=== PATIENT | male | born 1945 | race Caucasian/White ===

== ENCOUNTER 2016-12-12 11:53 | Day surgery (SDC) | payer BC, MEDICARE ==
[2016-12-12 13:15] VITALS: RESP 14; TEMP 97.5
[2016-12-12 13:37] VITALS: BP 145/83; PULSE 72
--- NOTE | 2016-12-12 13:58 | US ---
EXAMINATION TYPE: US FNA thyroid DATE OF EXAM: 12/12/2016 COMPARISON: NONE HISTORY: Thyroid nodule on the right. Maximal barrier technique was utilized. After informed consent, skin overlying the right lobe thyroi d lesion was localized with ultrasound and the overlying skin prepped and draped. Ultrasound was util ized using sterile technique. Lidocaine was used for local anesthesia. Five passes with a 25-gauge n eedle were made into the nodule and aspirated specimen was submitted to cytology. Following the proc edure hemostasis achieved. No immediate complication. The patient discharged in stable condition. IMPRESSION: STATUS POST ULTRASOUND GUIDED FINE NEEDLE ASPIRATION OF THYROID NODULE, PATHOLOGY IS PEND ING. THIS PROCEDURE WAS PERFORMED BY THE UNDERSIGNED.
== END 2016-12-12 13:44 | disposition home or self-care (01) ==
LOC: RADPROMAIN 11:53
PROVIDERS: ATTEND Otolaryngology
DX: E04.1 Nontoxic single thyroid nodule (principal)
CPT/HCPCS: 10022; 76942; 88173; 88305

== ENCOUNTER → 2016-12-22 | Outpatient (CLI) | payer MEDICARE ==
[2016-12-22 07:57] LABS: Ionized Calcium 5.1 mg/dL (4.5-5.3)
[2016-12-22 08:08] LABS: ALT 42 U/L (21-72); AST 19 U/L (17-59); Alkaline Phosphatase 47 U/L (38-126); Anion Gap 10 mmol/L; Blood Urea Nitrogen 25 mg/dL (9-20); Calcium 9.5 mg/dL (8.4-10.2); Carbon Dioxide 25 mmol/L (22-30); Chloride 108 mmol/L (98-107); Glucose 131 mg/dL (74-99); Non-African American GFR(MDRD) >60 (>60 ml/min/1.73 sqM); Potassium 4.4 mmol/L (3.5-5.1); Sodium 143 mmol/L (137-145); Total Protein 6.6 g/dL (6.3-8.2)
== END | disposition home or self-care (01) ==
LOC: LABWHC1 07:19
PROVIDERS: ATTEND Otolaryngology
DX: E04.1 Nontoxic single thyroid nodule (principal)
CPT/HCPCS: 36415; 80053; 82330; 84443

== ENCOUNTER 2017-01-14 07:59 | Day surgery (SDC) | payer MEDICARE ==
[2017-01-09 11:57] VITALS: BMI 29.9
[~2017-01-14 07:59] MED LIST: DEXAMETHASONE SOD PHOSPHATE 10 MG/ML 1 ML VIAL IV ONE; DEXAMETHASONE SOD PHOSPHATE 4 MG/ML 1 ML VIAL IV ONE; FAMOTIDINE 20 MG/2 ML VIAL IV ONE; LACTATED RINGERS 1,000 ML IV SCH; LIDOCAINE 1% 20 ML VIAL (10MG/ML) FOR IV START INTRADERMA PRN; MIDAZOLAM 2 MG/2 ML VIAL IV PRN; ONDANSETRON 4 MG/2 ML VIAL IVP ONE; SCOPOLAMINE 1.5MG/72HR PATCH TRANSDERM ONE; ceFAZolin 1,000 MG in DEXTROSE/WATER 1 50ML.BAG IV ONE
[2017-01-14] MEDS: ONDANSETRON 4 MG/2 ML VIAL IVP ONE ×2 (09:03→13:29)
[2017-01-14 09:04] LABS: Glucose,Whole Blood 169 mg/dL (75-99)
[2017-01-14] MEDS ORDERED: SUCCINYLCHOLINE CHLORIDE 100 MG/5 ML SYR IV ONE (09:44)
[2017-01-14] MEDS ORDERED: PHENYLEPHRINE-0.9% NACL SYG 1 MG/10 ML SYRINGE ONE (09:44)
[2017-01-14] MEDS ORDERED: fentaNYL (PF) 50 MCG/ML 2 ML AMP ONE (09:44)
[2017-01-14] MEDS ORDERED: GLYCOPYRROLATE 0.2 MG/ML 2 ML VIAL ONE (09:44)
[2017-01-14] MEDS ORDERED: MIDAZOLAM 2 MG/2 ML VIAL ONE (09:44)
[2017-01-14] MEDS ORDERED: LIDOCAINE 1% INJ 10MG/ML (20 ML MDV) ONE (09:44)
[2017-01-14] MEDS ORDERED: DEXAMETHASONE SOD PHOS (MDV) 100 MG/10 ML VIAL ONE (09:44)
[2017-01-14] MEDS ORDERED: PROPOFOL 10 MG/ML 20 ML VIAL IV ONE (09:44)
[2017-01-14] MEDS ORDERED: LACTATED RINGERS 1,000 ML IV ONE ×3 (11:23→14:42)
[2017-01-14] MEDS: LACTATED RINGERS 1,000 ML IV ONE ×2 (11:23→14:32)
--- NOTE | 2017-01-14 13:06 | P.OP ---
Date of Procedure: 01/14/17 Preoperative Diagnosis: Right thyroid nodule/mass Postoperative Diagnosis: Same Procedure(s) Performed: Right thyroid lobectomy with isthmusectomy Anesthesia: TAMMIA Surgeon: Adriel Mckee Estimated Blood Loss (ml): 10 Pathology: other (Right thyroid lobe and isthmus) Condition: stable Disposition: PACU Indications for Procedure: This is a 71-year-old white male with a right thyroid mass noted by his primary care physician. 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 Operative Findings: Nodular firm right thyroid lobe with a large well encapsulated nodule off the superior pole approximately 5 cm Description of Procedure: Patient was brought in the operative suite and placed in supine position. The patient underwent induction of general anesthesia with oral endotracheal intubation without difficulty. The patient was prepped and draped using aseptic fashion. Patient was intubated with a nim endotracheal tube for monitoring the recurrent laryngeal nerve. This was tested and was working well. A curvilinear incision was made low anterior neck 2 fingerbreadths above the clavicles between the sternocleidomastoid muscles was carried sharply through the skin and subcu tissue as well as platysma layer. The skin flaps were raised the subplatysmal plane. The trachea was deviated quite significantly towards the left and therefore the this was located to the left the midline. The strap muscles were split in the midline raphae. The thyroid isthmus was located and was divided with electrocautery at the junction of the left thyroid lobe and isthmus and was reflected off the trachea towards the right. Dissection then continued inferiorly to locate the inferior pole and the inferior parathyroid gland was identified and preserved. The inferior thyroid artery and vein were doubly clamped divided and ligated with 3-0 Vicryl ties. The recurrent laryngeal nerve located also in the tracheoesophageal groove. The dissection then continued superiorly and this was where the nodule was located and was quite extensive. This was dissected bluntly and sharply from the surrounding tissue. The superior thyroid artery and vein were doubly clamped divided and ligated individually after the superior laryngeal nerve was identified and preserved. Dissection then continued laterally to dissecting from lateral to medial. This was performed with the recurrent laryngeal nerve in good visualization. Ultimately the nodule and thyroid lobe were reflected off of the anterior trachea. Gen. nerve was recurrent laryngeal nerve was identified once again and traced throughout its tract was noted to be intact. This stimulated well with 0.5 mA at the conclusion of the case and hemostasis was noted to be good. A small pledget of Surgicel was placed over this is. A #7 drain was placed through separate inferior stab incision. The wound again was noted. Good hemostasis. The platysma and subcu layers was closed with inverted interrupted 30 and 4-0 Vicryl respectively and the skin closed running locking 5-0 Prolene suture. Sterile dressing was placed. The drain dressing also placed. The patient was then allowed to emerge from general anesthesia and tolerated procedure well was extended the operating suite and transferred postoperative recovery area in satisfactory condition.
[2017-01-14] MEDS: HYDROmorphone 0.5 MG/0.5 ML SYRINGE IVP PRN ×2 (13:20→13:28)
[2017-01-14 13:21] VITALS: TEMP 97
[2017-01-14 14:16] LABS: Glucose,Whole Blood 263 mg/dL (75-99)
[2017-01-14] MEDS ORDERED: INSULIN LISPRO (humaLOG) 300 UNIT/3 ML VIAL SQ ONE ×2 (14:21→15:10)
[2017-01-14 15:09] LABS: Glucose,Whole Blood 285 mg/dL (75-99)
[2017-01-14 16:34] VITALS: RESP 20
[2017-01-14 16:49] VITALS: BP 132/67; PULSE 93
== END 2017-01-14 17:15 | disposition home or self-care (01) ==
LOC: OR 07:59
PROVIDERS: ATTEND Otolaryngology
DX: C73 Malignant neoplasm of thyroid gland (principal); E04.2 Nontoxic multinodular goiter; I10 Essential (primary) hypertension; E78.5 Hyperlipidemia, unspecified; E11.9 Type 2 diabetes mellitus without complications; E07.9 Disorder of thyroid, unspecified; N40.0 Benign prostatic hyperplasia without lower urinary tract symptoms; Z79.84 Long term (current) use of oral hypoglycemic drugs; Z79.82 Long term (current) use of aspirin; Z79.899 Other long term (current) drug therapy; Z88.7 Allergy status to serum and vaccine
CPT/HCPCS: 60220; 82310; 88307; 88311; J2250; J1100 ×2; J2405; J2001; J3010; J0690; J2370; J0330; J2704; J1170

== ENCOUNTER → 2017-08-10 | Outpatient (CLI) | payer MEDICARE ==
[2017-08-10 09:18] LABS: T4, Free (Free Thyroxine) 1.14 ng/dL (0.78-2.19)
--- NOTE | 2017-08-10 10:24 | US ---
EXAMINATION TYPE: US thyroid st tissue head/neck DATE OF EXAM: 08/10/2017 COMPARISON: 12/12/2016 fine-needle aspiration. No prior imaging of the left thyroid lobe. CLINICAL HISTORY: C73 Malignant neoplasm of thyroid gland. GLAND SIZE: Right Lobe: Surgically absent Left Lobe: 4.7 x 2.6 x 1.4 cm Overall Parenchyma: homogeneous Isthmus Thickness: 0.5 cm NODULES RIGHT: Surgically absent. No residual tissue visualized. LEFT: # of nodules measured on left: 0 0.6 x 0.5 x 0.6cm hypoechoic solid nodule with well defined borders, wider than tall with no vascular ity. Other smaller similar appearing nodules are seen within the left thyroid lobe. Bilateral neck scanned, no evidence of lymphadenopathy. IMPRESSION: Solitary subcentimeter solid hypoechoic left thyroid nodule for which surveillance is recommended as this is too small for fine-needle aspiration. Other smaller scattered nodules are also seen within th e left thyroid lobe. No adenopathy visualized.
== END | disposition home or self-care (01) ==
LOC: LABWHC1 08:20
PROVIDERS: ATTEND Internal Medicine Endocrinology, Diabetes & Metabolism
DX: C73 Malignant neoplasm of thyroid gland (principal)
CPT/HCPCS: 36415; 76536; 84432; 84439; 84443; 86800

== ENCOUNTER → 2017-10-08 | Outpatient (CLI) | payer MEDICARE ==
[2017-10-08 12:49] LABS: Basophils % (A) 0 %; Eosinophils % (A) 0 %; HCT 43.2 % (39.0-53.0); HGB 14.4 gm/dL (13.0-17.5); Lymphocytes # (A) 1.4 k/uL (1.0-4.8); Lymphocytes % (A) 31 %; MCH 30.3 pg (25.0-35.0); MCHC 33.4 g/dL (31.0-37.0); MCV 90.6 fL (80.0-100.0); Mean Platelet Volume 7.3; Monocytes # (A) 0.4 k/uL (0-1.0); Monocytes % (A) 9 %; Neutrophils # (A) 2.5 k/uL (1.3-7.7); Neutrophils % (A) 57 %; Platelet Count 219 k/uL (150-450); RBC 4.77 m/uL (4.30-5.90); RDW 14.4 % (11.5-15.5); WBC 4.5 k/uL (3.8-10.6)
[2017-10-08 12:58] LABS: Anion Gap 10 mmol/L; Blood Urea Nitrogen 27 mg/dL (9-20); C Reactive Protein <5.0 mg/L (<10.0); Calcium 9.2 mg/dL (8.4-10.2); Carbon Dioxide 23 mmol/L (22-30); Chloride 105 mmol/L (98-107); Glucose 230 mg/dL (74-99); Potassium 5.1 mmol/L (3.5-5.1); Sodium 138 mmol/L (137-145)
[2017-10-08 14:03] LABS: Erythrocyte Sedimentation Rate 5 mm/hr (0-15)
== END | disposition home or self-care (01) ==
LOC: LABWHC1 11:24
PROVIDERS: ATTEND Internal Medicine Infectious Disease
DX: E11.69 Type 2 diabetes mellitus with other specified complication (principal); L08.89 Other specified local infections of the skin and subcutaneous tissue
CPT/HCPCS: 36415; 80048; 85025; 85652; 86140

== ENCOUNTER → 2017-11-12 | Outpatient (CLI) | payer MEDICARE ==
--- NOTE | 2017-11-12 14:24 | XR ---
Right foot HISTORY: Right foot pain, diabetic ulcer, nonhealing wound 3 views of the right foot No comparisons There is soft tissue swelling at the second digit of the right foot. Erosion is present at the distal aspect of the middle phalanx of the second digit of the right foot at its medial extent with overhan ging bony edge. Some lateral subluxation is present at the distal interphalangeal joint. Punched-out lucency also noted the middle phalanx of the fourth digit of the right foot. Degenerative change present at the first metatarsophalangeal joint. Vascular calcifications are prese nt in the soft tissues. There is a plantar calcaneal spur, enthesophyte present at the insertion of t he Achilles tendon. Ossific density at the talar neck is well-corticated and not likely to be acute. There is soft tissue swelling. IMPRESSION: Findings suggest osteomyelitis second digit right foot. Additional findings above.
== END | disposition home or self-care (01) ==
LOC: RADXRMAIN 11:48
PROVIDERS: ATTEND Internal Medicine Infectious Disease
DX: S93.134A Subluxation of interphalangeal joint of right lesser toe(s), initial encounter (principal)

== ENCOUNTER → 2017-11-25 | Outpatient (CLI) | payer MEDICARE ==
--- NOTE | 2017-11-25 10:08 | XR ---
EXAMINATION TYPE: XR foot complete RT DATE OF EXAM: 11/25/2017 COMPARISON: NONE HISTORY: Pain TECHNIQUE: Three views are submitted. FINDINGS: The osseous structures are intact. There is no acute fracture or dislocation. Severe arthropathy f irst MTP joint. There is subluxation of the distal phalanx of the second digit relative to the middle phalanx and there is a area of erosive change involving the second digit suspicious for osteomyeliti s. Arthropathy of the DIP joints of the fourth and fifth digits noted. Vascular calcifications are no sabas. Calcaneal spurs are noted. IMPRESSION: 1. Erosive change middle phalanx second digit compatible with osteomyelitis. There also subluxation o r dislocation of the distal phalanx second digit.
== END | disposition home or self-care (01) ==
LOC: RADXRMAIN 08:33
PROVIDERS: ATTEND Internal Medicine Infectious Disease
DX: M86.8X7 Other osteomyelitis, ankle and foot (principal)

== ENCOUNTER → 2018-10-13 | Outpatient (CLI) | payer MEDICARE ==
--- NOTE | 2018-10-13 13:33 | XR ---
EXAMINATION TYPE: XR foot complete RT DATE OF EXAM: 10/13/2018 COMPARISON: 11/25/2017 HISTORY: Second toe pain TECHNIQUE: Three views are submitted. FINDINGS: There appears to be loss of cortical margin along the distal phalanx of the DIP joint second digit. S evere arthropathy first MTP joint. There is arthropathy of all DIP joints. Vascular calcifications ar e noted. Large calcaneal spurs are seen. There is no acute fracture or dislocation. IMPRESSION: 1. There is irregularity of the DIP joint of the second digit suspicious for osteomyelitis. Correlate clinically.
== END | disposition home or self-care (01) ==
LOC: RADXRMAIN 13:04
PROVIDERS: ATTEND Family Medicine
DX: M25.871 Other specified joint disorders, right ankle and foot (principal)

== ENCOUNTER 2022-04-01 07:36 | Day surgery (SDC) | payer MEDICARE ==
[~2022-04-01 07:36] MED LIST changes: +ALPRAZolam 0.25 MG TAB PO PRN; +ALPRAZolam 0.5 MG TAB PO PRN; +ASPIRIN 325 MG TAB PO STA; -DEXAMETHASONE SOD PHOSPHATE 10 MG/ML 1 ML VIAL IV ONE; -DEXAMETHASONE SOD PHOSPHATE 4 MG/ML 1 ML VIAL IV ONE; -FAMOTIDINE 20 MG/2 ML VIAL IV ONE; -LACTATED RINGERS 1,000 ML IV SCH; -LIDOCAINE 1% 20 ML VIAL (10MG/ML) FOR IV START INTRADERMA PRN; -MIDAZOLAM 2 MG/2 ML VIAL IV PRN; +NITROGLYCERIN SL TABS 0.4 MG TAB SUBLINGUAL PRN; -ONDANSETRON 4 MG/2 ML VIAL IVP ONE; -SCOPOLAMINE 1.5MG/72HR PATCH TRANSDERM ONE; -ceFAZolin 1,000 MG in DEXTROSE/WATER 1 50ML.BAG IV ONE
[2022-04-01] MEDS ORDERED: SODIUM CHLORIDE 0.9% 1,000 ML IV ONE (07:54)
[2022-04-01 08:08] LABS: Glucose,Whole Blood 177 mg/dL (70-110)
[2022-04-01] MEDS ORDERED: VERAPAMIL 2.5 MG/ML 2 ML AMP ONE (08:47)
[2022-04-01] MEDS ORDERED: fentaNYL (PF) 50 MCG/ML 2 ML AMP ONE (08:59)
[2022-04-01] MEDS ORDERED: fentaNYL (PF) 50 MCG/ML 2 ML AMP IV ONE (09:03)
[2022-04-01] MEDS ORDERED: MIDAZOLAM 2 MG/2 ML VIAL IV ONE (09:05)
[2022-04-01] MEDS ORDERED: LIDOCAINE 1% INJ 10MG/ML (30 ML VIAL-PF) SQ ONE (09:07)
[2022-04-01] MEDS ORDERED: HEPARIN SODIUM 1,000 UN/ML (10ML VL) ONE (09:08)
[2022-04-01] MEDS ORDERED: VERAPAMIL SYRINGE (5 MG/10 ML) INTRAARTER ONE (09:08)
[2022-04-01] MEDS ORDERED: CLOPIDOGREL 75 MG TAB ONE (09:20)
[2022-04-01] MEDS ORDERED: CLOPIDOGREL 75 MG TAB PO ONE (09:24)
[2022-04-01] MEDS ORDERED: IOPAMIDOL-370 125ML BTL INJ ONE (09:54)
[2022-04-01] MEDS ORDERED: NITROGLYCERIN 1000MCG/10ML SYRINGE INTRACORON ONE (09:59)
[2022-04-01] MEDS ORDERED: IOPAMIDOL-370 100ML BTL INJ ONE (10:10)
[2022-04-01] MEDS ORDERED: ATROPINE SULFATE 0.1 MG/ML 10ML SYRINGE IV PRN (10:21)
[2022-04-01] MEDS ORDERED: ZOLPIDEM 5 MG TAB PO PRN (10:21)
[2022-04-01] MEDS ORDERED: MAG HYDROX/AL HYDROX/SIMETH 30 ML CUP PO PRN (10:21)
[2022-04-01] MEDS ORDERED: RX INFO: IV CONTRAST WAS GIVEN 1 EACH MISC MISCELLANE PRN (10:21)
[2022-04-01] MEDS ORDERED: NITROGLYCERIN SL TABS 0.4 MG TAB SUBLINGUAL PRN (10:21)
[2022-04-01] MEDS ORDERED: SODIUM CHLORIDE 0.9% 1,000 ML in EMPTY BAG 1 BAG IV SCH (10:30)
--- NOTE | 2022-04-01 10:38 | P.CARDCATH ---
Date of Procedure: 04/01/22 Description of Procedure: Cardiac Catheterization: The patient is a 77-year-old male with a known history of hypertension, hyperlipidemia and diabetes who has been complaining of progressive dyspnea on exertion, had an abnormal MPI with inferior wall ischemia. Recommendations were made regarding cardiac catheterization, the risks and the complications were discussed with the patient who is in full understanding and agreement. Procedure Description: Patient was brought to lab head in fasting semi-sedated state after receiving Fentanyl and Benadryl achieiving moderate conscious sedated state. Using Xylocaine Anesthesia and Seldinger technique, a 6-[place] sheath was introduced in the right radial artery . Subsequently, selective coronary angiography was performed using a 5-[place] 3.5 bend Sai catheter. Multiple views of the coronary artery including hemiaxial views were obtained. The 5-[place] Pigtail catheter was used to cross the aortic valve and LVEDP was calculated. After removing the catheter 6-[place]ian 0.75 AL guiding catheter was introduced and the system. After cannulating the right coronary ostium a 0.014 BMW J-wire was introduced with a straight super cross microcatheter. There was inability to cross the lesion, the wire was exchanged to a 0.014 whisper J wire and after cr ossing the lesion the microcatheter was removed, and guide liner catheter was introduced and subsequently a 1.0 x 10 mm Sapphire balloon was advanced and multiple inflation at 10 luis antonio was done. After removing the balloon the microcatheter was reintroduced and the wire was exchanged to a 0.014 BMW. Subsequently a 2.5 x 12 mm Euphora balloon was advanced and inflations at 8 luis antonio were done. After removing the balloon a IVUS [place] catheter was introduced and imaging were obtained, after removing the catheter a 3.5 x 28 mm Xience varun point stent was advanced and deployed at 16 luis antonio. After removing the balloon repeat intravascular ultrasound imaging was performed and subsequently 4.0 x 20 mm NC Treck balloon was advanced and inflations at 10 luis antonio was done. After withdrawing the wire images were obtained and repeated and revealed stable successful stenting. Following that, catheter and sheath were removed. Hemostasis was obtained with deployment of TR band . There was no immediate comp lication. Patient was returned to room in stable condition. Of note, the patient received a total of 7500 units of intravenous heparin as well as intra-arterial verapamil. He received an oral loading dose of clopidogrel, his ACT was followed, he had no EKG changes or significant chest discomfort. Findings: Fluoroscopy: Calcifications of the coronary arteries of moderate degree was noted Left main: This is a large-size vessel, bifurcating into LAD and left circumflex, left main has no high-grade stenosis LAD: This is a large size vessel, tapers down in the distal third, giving rise to 2 that branch, the LAD and branches have mild intimal disease with no high- grade stenosis Left circumflex: This is a large nondominant vessel giving rise to a large obtuse marginal branch, the left circumflex and its branches have no obstructive disease RCA: This is a large-size vessel, proximally has a 30% plaque in its totally occluded in the midsegment with no significant antegrade flow Collaterals: There is rich collaterals from the left cornea system toward the RCA PDA and PLV. Left Ventriculogram: Not performed Hemodynamics: There was no gradient across the aortic valve, LVEDP was 15-18 mmHg Conclusion: 1. Calcified coronary arteries 2. Chronically occluded mid RCA with collaterals from the left system 3. Mild disease in the LAD 4. Successful stenting LAD with reduction of stenosis from 100% to 0%, post intravascular ultrasound imaging. Recommendations: I have recommended to continue dual antiplatelets treatment with aspirin and Plavix without any interruption for 6 months in addition to aggressive coronary risks modifications. The findings and the recommendations were discussed with the patient and the family and they were in full understanding and agreement. Duration of sedation is 69 minutes.
[2022-04-01] MEDS: SODIUM CHLORIDE 0.9% 1,000 ML in EMPTY BAG 1 BAG IV SCH ×3 (12:50→22:29)
[2022-04-01 14:31] VITALS: BMI 31.9
[2022-04-01 17:19] LABS: Glucose,Whole Blood 209 mg/dL (70-110)
[2022-04-01] MEDS: glipiZIDE 10 MG TAB PO SCH (17:46)
[2022-04-01 20:48] LABS: Glucose,Whole Blood 173 mg/dL (70-110)
[2022-04-01] MEDS: lisinopriL 5 MG TAB PO SCH (21:22)
[2022-04-02 03:19] VITALS: RESP 16
[2022-04-02 06:25] LABS: Glucose,Whole Blood 95 mg/dL (70-110)
[2022-04-02] MEDS ORDERED: LEVOTHYROXINE 125 MCG TAB PO SCH (06:30)
[2022-04-02 07:03] LABS: African American GFR (CKD) 68 (>60 ml/min/1.73 sqM); Anion Gap 5 mmol/L; Blood Urea Nitrogen 25 mg/dL (9-20); Calcium 8.7 mg/dL (8.4-10.2); Carbon Dioxide 25 mmol/L (22-30); Chloride 110 mmol/L (98-107); Glucose 93 mg/dL (74-99); Non-African American GFR(CKD) 59 (>60 ml/min/1.73 sqM); Sodium 140 mmol/L (137-145)
--- NOTE | 2022-04-02 07:23 | P.PN ---
Subjective Progress Note Date: 04/02/22 PROGRESS NOTE The patient is a 77-year-old male with known history of hypertension, hyperlipidemia and diabetes mellitus who presented with abnormal MPI and worsening dyspnea, underwent cardiac catheterization and was found to have chronic total occlusion of the RCA, underwent stenting of that vessel. He feels better today. He denies any chest discomfort, dizziness or palpitations. He is in sinus mechanism. Ambulating without difficulties. Medications: Aspirin, Lipitor 40 mg daily, Plavix 75 mg daily, glipizide 10 mg twice a day, levothyroxine, Zestril 5 mg twice a day, Actos 15 mg daily, Flomax. PHYSICAL EXAMINATION: Blood pressure 117/60 heart rate 78 LUNGS: Clear to auscultation HEART: Regular rate and rhythm, S1, S2. No S3. No systolic murmur ABDOMEN: Soft, nontender, no organomegaly EXTREMETIES: No edema, right radial pulse intact LAB: BUN 25, creatinine 1.18 IMPRESSION: 1. Status post stenting of chronic total occlusion of RCA 2. Hypertension 3. Hyperlipidemia 4. And diabetes mellitus PLAN: 1. Continue present therapy 2. Discharged home today 3. And follow-up in one week Objective - Vital Signs Vital signs: Vital Signs Temp 97.7 F 04/02/22 02:41 Pulse 78 04/02/22 02:41 Resp 16 04/02/22 02:41 BP 117/66 04/02/22 02:41 Pulse Ox 94 L 04/02/22 02:41 FiO2 Intake & Output 04/01/22 04/02/22 04/02/22 18:59 06:59 18:59 Intake Total 1240 Output Total 500 Balance 740 Weight 103.9 kg Intake: IV 1000 Oral 240 Output: Urine 500 Other: # Voids 1 4 - Labs CBC & Chem 7: 04/02/22 06:06 Labs: Abnormal Lab Results - Last 24 Hours (Table) 04/01/22 04/01/22 04/01/22 Range/Units 08:06 17:17 20:46 Chloride (98-107) mmol/L BUN (9-20) mg/dL POC Glucose (mg/dL) 177 H 209 H 173 H (70-110) mg/dL 04/02/22 Range/Units 06:06 Chloride 110 H (98-107) mmol/L BUN 25 H (9-20) mg/dL POC Glucose (mg/dL) (70-110) mg/dL
[2022-04-02] MEDS: ATORVASTATIN 40 MG TAB PO SCH ×2 (08:17→08:21)
[2022-04-02] MEDS: glipiZIDE 10 MG TAB PO SCH (08:17)
[2022-04-02] MEDS: lisinopriL 5 MG TAB PO SCH (08:19)
[2022-04-02] MEDS ORDERED: ASPIRIN 81 MG PO SCH (09:00)
[2022-04-02] MEDS ORDERED: PIOGLITAZONE 15 MG TAB PO SCH (09:00)
[2022-04-02] MEDS ORDERED: CLOPIDOGREL 75 MG TAB PO SCH (09:00)
[2022-04-02] MEDS ORDERED: TAMSULOSIN 0.4 MG CAP.ER.24H PO SCH (09:00)
[2022-04-02 10:22] VITALS: BP 122/74; PULSE 84; TEMP 98.4
[2022-04-06] MEDS ORDERED: LEVOTHYROXINE 125 MCG TAB PO SCH (06:30)
== END 2022-04-02 11:17 | disposition home or self-care (01) ==
LOC: CATHCVL 07:36 → 6NMEDSUR 10:14 → CATHCVL 04-02 11:17
PROVIDERS: ATTEND Internal Medicine Interventional Cardiology
DX: I25.10 Atherosclerotic heart disease of native coronary artery without angina pectoris (principal); I25.82 Chronic total occlusion of coronary artery; E78.5 Hyperlipidemia, unspecified; E11.9 Type 2 diabetes mellitus without complications; I10 Essential (primary) hypertension; R06.02 Shortness of breath; Z79.82 Long term (current) use of aspirin; Z79.84 Long term (current) use of oral hypoglycemic drugs; Z79.899 Other long term (current) drug therapy; Z95.5 Presence of coronary angioplasty implant and graft
CPT/HCPCS: 94760; 92978; 93458; 80048; C9600; C1769 ×3; C1887 ×3; C1894; C1725 ×3; C1753; C1874; J2250; J2001; J3010; J1644 ×2; Q9967 ×2

== ENCOUNTER → 2024-05-02 | Outpatient (CLI) | payer MEDICARE ==
--- NOTE | 2024-05-02 14:59 | XR ---
EXAMINATION TYPE: XR foot complete RT DATE OF EXAM: 05/02/2024 COMPARISON: Right foot radiograph 10/13/2018, 11/25/2017, 11/12/2017 HISTORY: Right foot diabetic wound TECHNIQUE: Frontal, lateral and oblique images of the right foot are obtained. COMPARISON: None. FINDINGS: There is no acute fracture/dislocation evident. No osseous erosion. Moderate to severe carmela nt space narrowing with spurring at the first MTP joint. Posterior and plantar calcaneal enthesophyte s. Vascular sclerosis. Mild dorsal midfoot soft tissue swelling. IMPRESSION: 1. No acute fracture or dislocation. 2. No osseous erosions to suggest osteomyelitis. 3. Mild dorsal midfoot soft tissue swelling. [facility], , 05/02/2024 2:57 PM
== END | disposition home or self-care (01) ==
LOC: RADXRMAIN 14:27
PROVIDERS: ATTEND Internal Medicine Infectious Disease
DX: M86.171 Other acute osteomyelitis, right ankle and foot (principal); E11.9 Type 2 diabetes mellitus without complications; M79.89 Other specified soft tissue disorders